=== PATIENT | female | born 1985 | race Caucasian/White ===

== ENCOUNTER 2019-03-26 16:40 | Emergency (ER) | payer SELFPAY ==
[~2019-03-26] VITALS: Ht 160 cm; Wt 70.0 kg
[2019-03-26] MEDS ORDERED: ACETAMINOPHEN 325MG TABLET PO ONE (21:00)
[2019-03-26] MEDS ORDERED: MAGNESIUM/ALUMINUM HYDROXIDE/SIMETHICONE 30ML UDC PO ONE (21:00)
[2019-03-26] MEDS ORDERED: ONDANSETRON 4MG ODT PO ONE (21:00)
[2019-03-26] MEDS ORDERED: FAMOTIDINE 20MG TABLET PO ONE (21:00)
[2019-03-26 21:35] LABS: BASOPHILS % 0.3 % (0.0-2.0); EOSINOPHILS % 0.9 % (0.0-5.0); HEMATOCRIT. 35.2 % (36.0-48.0); HEMOGLOBIN. 12.2 g/dL (12.0-16.0); LYMPHOCYTES % 21.9 % (20.0-50.0); MEAN CORPUSCULAR HEMOGLOBIN 30.2 pg (28.0-32.0); MEAN CORPUSCULAR VOLUME 87.1 fL (81.0-99.0); MEAN PLATELET VOLUME 6.7 fl (7.4-10.4); MONOCYTES % 3.9 % (2.0-8.0); PLATELET 337 x1000/uL (130-400); RED BLOOD CELL COUNT 4.04 mill/uL (4.2-5.4); RED CELL DISTRIBUTION WIDTH 12.9 % (11.6-14.6)
[2019-03-26 21:42] LABS: CHLORIDE 107 mEq/L (98-107)
[2019-03-26 21:46] LABS: HCG SCREEN NEGATIVE
[2019-03-26 23:44] VITALS: BP 101/59
== END 2019-03-27 00:31 | disposition home or self-care (01) ==
LOC: ER 16:40
DX: R07.89 Other chest pain (principal)
CPT/HCPCS: 36415; 71045; 80053; 81025; 83690; 84484; 84703; 85025; 93005; 99284; Q0162